=== PATIENT | male | born 1950 | race Two or more races ===

== ENCOUNTER 2021-07-14 16:12 | Inpatient (IN) | payer MEDICARE, MEDICAID ==
[~2021-07-14] VITALS: Ht 165.1 cm; Wt 102.1 kg
[2021-07-14] MEDS ORDERED: SODIUM CHLORIDE 0.9% 1,000 ML IV ONE ×3 (16:30→21:15)
[2021-07-14 16:54] LABS: BASOPHILS % 0.1 % (0.0-2.0); EOSINOPHILS % 0.6 % (0.0-5.0); HEMATOCRIT. 32.2 % (42.0-52.0); HEMOGLOBIN. 10.7 g/dL (14.0-18.0); LYMPHOCYTES % 27.3 % (20.0-50.0); MEAN CORPUSCULAR HEMOGLOBIN 29.7 pg (28.0-32.0); MEAN CORPUSCULAR VOLUME 89.6 fL (80.0-94.0); MEAN PLATELET VOLUME 7.6 fl (7.4-10.4); MONOCYTES % 8.8 % (2.0-8.0); NEUTROPHILS % 63.2 % (40.0-76.0); PLATELET 364 x1000/uL (130-400); RED CELL DISTRIBUTION WIDTH 14.4 % (11.6-14.6)
[2021-07-14 17:00] LABS: CHLORIDE 109 mEq/L (98-107)
[2021-07-14 17:05] LABS: ETHANOL BLOOD < 10 mg/dL
[2021-07-14] MEDS ORDERED: CLINDAMYCIN 900 MG in DEXTROSE 5% WATER 50 ML IV ONE (18:00)
[2021-07-14 18:17] LABS: CLARITY URINE CLOUDY (CLEAR); COLOR URINE YELLOW (YELLOW); KETONES URINE NEGATIVE (NEGATIVE); LEUKOCYTE ESTERASE URINE 1+ (NEGATIVE); NITRITE URINE NEGATIVE (NEGATIVE); OCCULT BLOOD URINE 2+ (NEGATIVE); PROTEIN URINE 2+ (NEGATIVE); SPECIFIC GRAVITY URINE 1.016 (1.005-1.030)
[2021-07-14 18:24] LABS: *AMPHETAMINES SCREEN URINE NEGATIVE (NEGATIVE); *BARBITURATES SCREEN URINE NEGATIVE (NEGATIVE)
[2021-07-14 18:25] LABS: *BENZODIAZEPINES SCREEN URINE NEGATIVE (NEGATIVE); *COCAINE SCREEN URINE NEGATIVE (NEGATIVE); METHADONE URINE SCREEN NEGATIVE (NEGATIVE); OPIATES URINE SCREEN NEGATIVE (NEGATIVE); PHENCYCLIDINE URINE SCREEN NEGATIVE (NEGATIVE)
[2021-07-14 18:26] LABS: CANNABINOID URINE SCREEN NEGATIVE (NEGATIVE)
[2021-07-14] MEDS ORDERED: CEFTRIAXONE 1 G PREMIX 50 ML IV ONE (20:15)
[2021-07-14] MEDS ORDERED: ACETAMINOPHEN 325MG TABLET PO ONE (21:45)
[2021-07-15] MEDS ORDERED: ACETAMINOPHEN 650MG SUPP PR PRN (00:15)
[2021-07-15] MEDS ORDERED: DOCUSATE SODIUM 100MG CAPSULE PO PRN (00:15)
[2021-07-15] MEDS ORDERED: DEXTROSE 50% WATER 50ML SYRINGE IV PRN (00:15)
[2021-07-15] MEDS ORDERED: ONDANSETRON HCL 4MG/2ML INJ IV PRN (00:15)
[2021-07-15] MEDS ORDERED: LORAZEPAM 2MG/ML CPJ IV PRN (00:15)
[2021-07-15] MEDS: SODIUM CHLORIDE 0.9% 1,000 ML IV SCH ×3 (01:00→21:24)
[2021-07-15] MEDS: BLOOD SUGAR DIAGNOSTIC STRIP TEST SCH ×4 (06:53→21:24)
[2021-07-15] MEDS: INSULIN LISPRO 100 UNITS/ML SUBCUT SCH ×4 (06:53→21:00)
[2021-07-15 09:00] VITALS: BP 125/96
[2021-07-15 10:31] VITALS: BP 142/84
[2021-07-15] MEDS ORDERED: CHLO25TA2 PO (11:45)
[2021-07-15] MEDS ORDERED: FINA5TAB11 MT (11:45)
[2021-07-15] MEDS ORDERED: ATOR20TA65 MT (11:45)
[2021-07-15] MEDS ORDERED: TAMS-11 MT (11:45)
[2021-07-15] MEDS ORDERED: DIGO125T80 PO (11:48)
[2021-07-15] MEDS ORDERED: APIX5TAB PO ×2 (11:48→11:49)
[2021-07-15] MEDS ORDERED: ATEN-42 PO (11:50)
[2021-07-15] MEDS ORDERED: LISI20TA31 PO (11:50)
[2021-07-15] MEDS ORDERED: DORZ10DR9 EACHEYE (11:55)
[2021-07-15] MEDS ORDERED: BRIM5DRO6 EACHEYE (11:55)
[2021-07-15] MEDS ORDERED: LATA2.5D14 RIGHTEYE (11:57)
[2021-07-15 12:00] VITALS: BP 125/96
[2021-07-15 16:00] VITALS: BP 108/79
[2021-07-15 20:00] VITALS: BP 129/76
[2021-07-16] VITALS: BP 148/76
[2021-07-16 04:00] VITALS: BP 142/79
[2021-07-16] MEDS: SODIUM CHLORIDE 0.9% 1,000 ML IV SCH ×2 (06:08→09:42)
[2021-07-16] MEDS: BLOOD SUGAR DIAGNOSTIC STRIP TEST SCH ×4 (06:08→21:13)
[2021-07-16] MEDS: INSULIN LISPRO 100 UNITS/ML SUBCUT SCH ×4 (07:50→21:00)
[2021-07-16 08:11] VITALS: BP 108/72
[2021-07-16 12:20] VITALS: BP 138/60
[2021-07-16 16:18] VITALS: BP 132/71
[2021-07-16 20:00] VITALS: BP 124/51
[2021-07-17 00:24] VITALS: BP 120/60
[2021-07-17] MEDS: SODIUM CHLORIDE 0.9% 1,000 ML IV SCH (03:00)
[2021-07-17 04:00] VITALS: BP 131/55
[2021-07-17] MEDS: BLOOD SUGAR DIAGNOSTIC STRIP TEST SCH ×4 (06:52→21:17)
[2021-07-17] MEDS: INSULIN LISPRO 100 UNITS/ML SUBCUT SCH ×4 (07:50→21:18)
[2021-07-17 08:13] VITALS: BP 127/78
[2021-07-17 08:57] LABS: BASOPHILS % 0.4 % (0.0-2.0); EOSINOPHILS % 0.5 % (0.0-5.0); HEMATOCRIT. 30.1 % (42.0-52.0); HEMOGLOBIN. 9.8 g/dL (14.0-18.0); LYMPHOCYTES % 20.7 % (20.0-50.0); MEAN CORPUSCULAR HEMOGLOBIN 29.5 pg (28.0-32.0); MEAN CORPUSCULAR VOLUME 90.6 fL (80.0-94.0); MEAN PLATELET VOLUME 7.8 fl (7.4-10.4); MONOCYTES % 9.2 % (2.0-8.0); NEUTROPHILS % 69.2 % (40.0-76.0); PLATELET 504 x1000/uL (130-400); RED BLOOD CELL COUNT 3.32 mill/uL (4.7-6.1); RED CELL DISTRIBUTION WIDTH 14.6 % (11.6-14.6)
[2021-07-17] MEDS ORDERED: SODIUM CHLORIDE 0.9% 1,000 ML IV SCH (10:07)
[2021-07-17 12:18] VITALS: BP 150/84
[2021-07-17 13:13] LABS: BASOPHILS % 0.1 % (0.0-2.0); EOSINOPHILS % 0.4 % (0.0-5.0); HEMATOCRIT. 29.4 % (42.0-52.0); HEMOGLOBIN. 9.7 g/dL (14.0-18.0); LYMPHOCYTES % 18.1 % (20.0-50.0); MEAN CORPUSCULAR HEMOGLOBIN 29.9 pg (28.0-32.0); MEAN CORPUSCULAR VOLUME 90.2 fL (80.0-94.0); MEAN PLATELET VOLUME 7.3 fl (7.4-10.4); MONOCYTES % 8.7 % (2.0-8.0); NEUTROPHILS % 72.7 % (40.0-76.0); PLATELET 487 x1000/uL (130-400); RED BLOOD CELL COUNT 3.26 mill/uL (4.7-6.1); RED CELL DISTRIBUTION WIDTH 14.2 % (11.6-14.6)
[2021-07-17 13:26] LABS: CHLORIDE 119 mEq/L (98-107)
[2021-07-17] MEDS: IPRATROPIUM/ALBUTEROL 0.5-3(2.5)MG/3ML NEB HHN SCH ×2 (13:28→20:35)
[2021-07-17] MEDS: SODIUM CHLORIDE 0.45% 1,000 ML IV SCH (16:22)
[2021-07-17] MEDS: LEVOFLOXACIN 500MG PREMIX 100 ML IV SCH (16:23)
[2021-07-17 16:33] VITALS: BP 150/83
[2021-07-17] MEDS: ACETAMINOPHEN 650MG SUPP PR PRN (16:50)
[2021-07-17 20:00] VITALS: BP 120/48
[2021-07-18 00:34] VITALS: BP 118/46
[2021-07-18] MEDS: IPRATROPIUM/ALBUTEROL 0.5-3(2.5)MG/3ML NEB HHN SCH ×4 (00:55→21:15)
[2021-07-18 04:00] VITALS: BP 123/52
[2021-07-18] MEDS: BLOOD SUGAR DIAGNOSTIC STRIP TEST SCH ×4 (07:20→20:23)
[2021-07-18] MEDS: INSULIN LISPRO 100 UNITS/ML SUBCUT SCH ×4 (07:50→20:32)
[2021-07-18 08:00] VITALS: BP 110/65
[2021-07-18] MEDS: SODIUM CHLORIDE 0.45% 1,000 ML IV SCH (11:39)
[2021-07-18 12:00] VITALS: BP 88/53
[2021-07-18 16:00] VITALS: BP 115/63
[2021-07-18] MEDS ORDERED: IOHEXOL-350 100 ML BOTTLE ONE (16:02)
[2021-07-18] MEDS: LEVOFLOXACIN 500MG PREMIX 100 ML IV SCH (16:22)
[2021-07-18 20:27] VITALS: BP 98/66
[2021-07-19] VITALS: BP 134/50
[2021-07-19] MEDS: IPRATROPIUM/ALBUTEROL 0.5-3(2.5)MG/3ML NEB HHN SCH ×3 (03:07→20:46)
[2021-07-19 04:00] VITALS: BP 127/64
[2021-07-19] MEDS: BLOOD SUGAR DIAGNOSTIC STRIP TEST SCH ×4 (06:37→21:08)
[2021-07-19] MEDS: SODIUM CHLORIDE 0.45% 1,000 ML IV SCH (06:37)
[2021-07-19] MEDS: INSULIN LISPRO 100 UNITS/ML SUBCUT SCH ×4 (07:50→21:00)
[2021-07-19 12:00] VITALS: BP 109/46
[2021-07-19 16:00] VITALS: BP 127/54
[2021-07-19] MEDS: LEVOFLOXACIN 500MG PREMIX 100 ML IV SCH (16:20)
[2021-07-19 20:00] VITALS: BP 121/67
[2021-07-20] VITALS: BP 134/62
[2021-07-20] MEDS: IPRATROPIUM/ALBUTEROL 0.5-3(2.5)MG/3ML NEB HHN SCH ×4 (02:38→21:12)
[2021-07-20] MEDS: SODIUM CHLORIDE 0.45% 1,000 ML IV SCH ×2 (03:42→23:24)
[2021-07-20 04:00] VITALS: BP 139/62
[2021-07-20] MEDS: BLOOD SUGAR DIAGNOSTIC STRIP TEST SCH ×4 (06:52→20:55)
[2021-07-20] MEDS: INSULIN LISPRO 100 UNITS/ML SUBCUT SCH ×4 (07:37→20:58)
[2021-07-20 08:00] VITALS: BP 141/65
[2021-07-20] MEDS ORDERED: HEPARIN SODIUM 1,000 UNIT/1ML VIAL IV ONE (09:30)
[2021-07-20] MEDS ORDERED: BUPIVACAINE HCL/PF 0.5% (5MG/ML) 10ML ONE (10:15)
[2021-07-20] MEDS ORDERED: VANCOMYCIN HCL 1 GM/VIAL ONE (10:15)
[2021-07-20] MEDS ORDERED: LIDOCAINE HCL 1% 20ML VIAL (Pyxis) INJ ONE ×2 (10:15→12:18)
[2021-07-20] MEDS ORDERED: POLYMYXIN B SULFATE 500000 UNITS/VIAL ONE (10:15)
[2021-07-20 12:04] LABS: BASOPHILS % 0.2 % (0.0-2.0); EOSINOPHILS % 0.6 % (0.0-5.0); HEMATOCRIT. 26.5 % (42.0-52.0); HEMOGLOBIN. 8.7 g/dL (14.0-18.0); LYMPHOCYTES % 19.2 % (20.0-50.0); MEAN CORPUSCULAR VOLUME 91.4 fL (80.0-94.0); MONOCYTES % 9.2 % (2.0-8.0); NEUTROPHILS % 70.8 % (40.0-76.0); PLATELET 390 x1000/uL (130-400); RED CELL DISTRIBUTION WIDTH 14.1 % (11.6-14.6)
[2021-07-20 12:08] LABS: CHLORIDE 113 mEq/L (98-107)
[2021-07-20] MEDS ORDERED: MIDAZOLAM HCL 2 MG/2 ML VIAL ONE ×2 (12:17→13:07)
[2021-07-20] MEDS ORDERED: FENTANYL CITRATE/PF 50MCG/ML 2ML VIAL ONE ×2 (12:18→13:07)
[2021-07-20] MEDS ORDERED: IODIXANOL 320MG/ML 100 ML BOTTLE IV ONE (12:18)
[2021-07-20] MEDS ORDERED: IOHEXOL-300 100 ML BOTTLE ONE (12:41)
[2021-07-20] MEDS ORDERED: ROPIVACAINE HCL 10MG/ML 20 ML VIAL EPI ONE (13:06)
[2021-07-20] MEDS ORDERED: PROPOFOL 200MG/20ML VIAL IV ONE (13:07)
[2021-07-20] MEDS: LEVOFLOXACIN 500MG PREMIX 100 ML IV SCH (18:22)
[2021-07-20 20:00] VITALS: BP 141/82
[2021-07-21] VITALS: BP 144/72
[2021-07-21 04:00] VITALS: BP 154/90
[2021-07-21] MEDS: BLOOD SUGAR DIAGNOSTIC STRIP TEST SCH ×4 (06:11→21:04)
[2021-07-21] MEDS: INSULIN LISPRO 100 UNITS/ML SUBCUT SCH ×4 (07:25→21:00)
[2021-07-21 08:42] VITALS: BP 147/60
[2021-07-21] MEDS: IPRATROPIUM/ALBUTEROL 0.5-3(2.5)MG/3ML NEB HHN SCH ×3 (09:05→21:07)
[2021-07-21 11:48] VITALS: BP 145/44
[2021-07-21] MEDS: ACETAMINOPHEN 650MG SUPP PR PRN (11:54)
[2021-07-21 16:24] VITALS: BP 142/49
[2021-07-21] MEDS: LEVOFLOXACIN 500MG PREMIX 100 ML IV SCH (16:56)
[2021-07-21] MEDS: SODIUM CHLORIDE 0.45% 1,000 ML IV SCH (19:01)
[2021-07-21 20:00] VITALS: BP 147/78
[2021-07-22 00:22] VITALS: BP 127/49
[2021-07-22 04:00] VITALS: BP 131/47
[2021-07-22] MEDS: BLOOD SUGAR DIAGNOSTIC STRIP TEST SCH ×4 (06:13→21:00)
[2021-07-22] MEDS: INSULIN LISPRO 100 UNITS/ML SUBCUT SCH ×4 (07:50→21:00)
[2021-07-22 07:57] VITALS: BP 152/88
[2021-07-22] MEDS: IPRATROPIUM/ALBUTEROL 0.5-3(2.5)MG/3ML NEB HHN SCH ×2 (07:57→15:07)
[2021-07-22] MEDS: APIXABAN 5 MG TABLET PO SCH ×2 (10:57→17:56)
[2021-07-22] MEDS: DILTIAZEM HCL 60MG TABLET PO SCH ×3 (10:57→22:16)
[2021-07-22 11:42] VITALS: BP 135/76
[2021-07-22 14:15] LABS: CHLORIDE 108 mEq/L (98-107)
[2021-07-22] MEDS ORDERED: POTASSIUM CHLORIDE 20MEQ/PACKET PO NR (14:30)
[2021-07-22 15:51] VITALS: BP 109/83
[2021-07-22] MEDS ORDERED: MAGNESIUM 4 G PREMIX 100 ML IV NR (16:00)
[2021-07-22 20:00] VITALS: BP 121/64
[2021-07-23] VITALS: BP 135/71
[2021-07-23 04:00] VITALS: BP 112/46
[2021-07-23] MEDS: DILTIAZEM HCL 60MG TABLET PO SCH (05:54)
[2021-07-23] MEDS: BLOOD SUGAR DIAGNOSTIC STRIP TEST SCH ×2 (06:51→12:59)
[2021-07-23] MEDS: INSULIN LISPRO 100 UNITS/ML SUBCUT SCH ×2 (07:46→12:50)
[2021-07-23 08:00] VITALS: BP_SYST 143; BP_SYST 169; BP_DIAS 35; BP_DIAS 70
[2021-07-23] MEDS: IPRATROPIUM/ALBUTEROL 0.5-3(2.5)MG/3ML NEB HHN SCH (08:34)
[2021-07-23] MEDS: APIXABAN 5 MG TABLET PO SCH (09:40)
[2021-07-23 12:00] VITALS: BP 128/71
== END 2021-07-23 14:40 | disposition home health service (06) | DRG 239 ==
LOC: ER 16:12 → MICUSO 21:46 → EDBEDREQSVC 21:48 → EDBEDREQTM 21:48 → EDBEDREQ 21:48 → 6WST 07-15 08:06
PROVIDERS: ADMIT Internal Medicine; ATTEND Internal Medicine
PROC: 0JBQ0ZZ Excision of Right Foot Subcutaneous Tissue and Fascia, Open Approach (ICD-10-PCS; 2021-07-17)
PROC: 0JBN0ZZ Excision of Right Lower Leg Subcutaneous Tissue and Fascia, Open Approach (ICD-10-PCS; 2021-07-17)
PROC: 047M3ZZ Dilation of Right Popliteal Artery, Percutaneous Approach (ICD-10-PCS; 2021-07-20)
PROC: 0Y6M0ZF Detachment at Right Foot, Partial 5th Ray, Open Approach (ICD-10-PCS; 2021-07-20)
PROC: B41F1ZZ Fluoroscopy of Right Lower Extremity Arteries using Low Osmolar Contrast (ICD-10-PCS; 2021-07-20)
PROC: 0QBN0ZZ Excision of Right Metatarsal, Open Approach (ICD-10-PCS; principal; 2021-07-23)
DX: E11.51 Type 2 diabetes mellitus with diabetic peripheral angiopathy without gangrene (principal); G93.41 Metabolic encephalopathy; J18.9 Pneumonia, unspecified organism; E43 Unspecified severe protein-calorie malnutrition; N17.9 Acute kidney failure, unspecified; M86.8X7 Other osteomyelitis, ankle and foot; I48.20 Chronic atrial fibrillation, unspecified; I70.92 Chronic total occlusion of artery of the extremities; E11.65 Type 2 diabetes mellitus with hyperglycemia; E78.5 Hyperlipidemia, unspecified; E86.0 Dehydration; I71.9 Aortic aneurysm of unspecified site, without rupture; K82.8 Other specified diseases of gallbladder; R13.10 Dysphagia, unspecified; L89.309 Pressure ulcer of unspecified buttock, unspecified stage; Z20.822 Contact with and (suspected) exposure to COVID-19; E11.69 Type 2 diabetes mellitus with other specified complication; E83.42 Hypomagnesemia; R74.01 Elevation of levels of liver transaminase levels; I11.9 Hypertensive heart disease without heart failure; I87.8 Other specified disorders of veins; E11.610 Type 2 diabetes mellitus with diabetic neuropathic arthropathy; S30.0XXA Contusion of lower back and pelvis, initial encounter; X58.XXXA Exposure to other specified factors, initial encounter; E11.621 Type 2 diabetes mellitus with foot ulcer; L97.529 Non-pressure chronic ulcer of other part of left foot with unspecified severity; Z86.73 Personal history of transient ischemic attack (TIA), and cerebral infarction without residual deficits; Z79.01 Long term (current) use of anticoagulants; Z86.16 Personal history of COVID-19; Z99.3 Dependence on wheelchair; Y93.89 Activity, other specified; Y92.89 Other specified places as the place of occurrence of the external cause; Y99.8 Other external cause status; Z68.37 Body mass index [BMI] 37.0-37.9, adult
CPT/HCPCS: 36415; 37224; 71045; 73630; 73721; 74230; 75635; 75710; 76705; 80048; 80053; 80076; 80305; 80307; 80320; 80329; 81003; 82040; 82140; 82962; 83036; 83605; 83735; 84134; 84443; 84484; 85025; 87070; 87075; 87077; 87186; 87426; 88304; 88311; 92610; 92611; 93005; 93306; 93923; 94640; 99291; C1725; C1760; C1769; C1893; C1894; J0696; J1644; J1815; J1956; J2250; J2704; J2795; J3010; J3370; J3475; J3490; J7030; J7060; Q9967; G0480